=== PATIENT | female | born 1950 | race African-American/Black ===

== ENCOUNTER 2017-09-10 15:17 | Emergency (ER) | payer MEDICARE, OTHER ==
[~2017-09-10] VITALS: Ht 170.2 cm; Wt 73.0 kg
[~2017-09-10 15:17] MED LIST: ATOR20TA65 PO; BENEZEPRIL PO; CHLO25TA2 PO
[2017-09-10 16:39] LABS: BASOPHILS % 0.6 % (0.0-2.0); EOSINOPHILS % 1.3 % (0.0-5.0); HEMATOCRIT. 34.8 % (36.0-48.0); HEMOGLOBIN. 11.4 g/dL (12.0-16.0); LYMPHOCYTES % 21.3 % (20.0-50.0); MEAN CORPUSCULAR HEMOGLOBIN 26.5 pg (28.0-32.0); MEAN CORPUSCULAR VOLUME 80.9 fL (81.0-99.0); MEAN PLATELET VOLUME 7.8 fl (7.4-10.4); MONOCYTES % 6.2 % (2.0-8.0); NEUTROPHILS % 70.6 % (40.0-76.0); PLATELET 280 x1000/uL (130-400); RED CELL DISTRIBUTION WIDTH 18.1 % (11.6-14.6)
[2017-09-10 16:42] LABS: CHLORIDE 110 mEq/L (98-107)
[2017-09-10 16:44] LABS: PARTIAL THROMBOPLASTIN TIME 25.4 sec (23.4-31.0); PROTHROMBIN TIME 10.2 sec (9.4-11.6)
[2017-09-10] MEDS ORDERED: KETOROLAC 60MG/2ML VIAL IM SCH (19:30)
[2017-09-10] MEDS ORDERED: ACETAMINOPHEN WITH CODEINE 300/30MG TABLET PO SCH (19:30)
[2017-09-10] MEDS ORDERED: POTASSIUM CHLORIDE 20MEQ TABLET SR PO ONE (19:30)
[2017-09-10] MEDS ORDERED: METHOCARBAMOL 500MG TABLET PO ONE (19:30)
[2017-09-10 22:50] VITALS: BP 130/58
== END 2017-09-10 22:50 | disposition home or self-care (01) ==
LOC: ER 16:30
DX: M54.12 Radiculopathy, cervical region (principal); M25.561 Pain in right knee; G89.29 Other chronic pain; I51.7 Cardiomegaly; E78.00 Pure hypercholesterolemia, unspecified; I10 Essential (primary) hypertension; Z95.0 Presence of cardiac pacemaker; Z96.651 Presence of right artificial knee joint
CPT/HCPCS: 36415; 71045; 72040; 73030; 80053; 83690; 84484; 85025; 85610; 85730; 93005; 96372; 99285; J1885